=== PATIENT | female | born 1955 | race Caucasian/White ===

== ENCOUNTER 2023-12-19 01:39 | Emergency (ER) | payer OTHER ==
[~2023-12-19] VITALS: Ht 170.2 cm; Wt 91.0 kg
[2023-12-19 01:45] VITALS: O2SAT 98
[2023-12-19] MEDS ORDERED: ACETAMINOPHEN 325MG TABLET PO ONE (02:00)
[2023-12-19] MEDS ORDERED: ONDANSETRON 4MG ODT PO ONE (02:00)
[2023-12-19 02:12] LABS: BASOPHILS % 0.3 % (0.0-2.0); EOSINOPHILS % 0.6 % (0.0-5.0); HEMATOCRIT. 26.3 % (36.0-48.0); HEMOGLOBIN. 7.7 g/dL (12.0-16.0); LYMPHOCYTES % 9.2 % (20.0-50.0); MEAN CORPUSCULAR HEMOGLOBIN 16.7 pg (28.0-32.0); MEAN CORPUSCULAR HGB CONC 29.4 g/dL (31.0-37.0); MEAN CORPUSCULAR VOLUME 56.8 fL (81.0-99.0); MEAN PLATELET VOLUME 8.2 fl (7.4-10.4); MONOCYTES % 4.9 % (2.0-8.0); PLATELET 211 x1000/uL (130-400); RED BLOOD CELL COUNT 4.62 mill/uL (4.2-5.4); RED CELL DISTRIBUTION WIDTH 22.9 % (11.6-14.6); WHITE BLOOD COUNT 10.4 x1000/uL (4.5-11.0)
[2023-12-19 02:17] LABS: ADD RBC MORPHOLOGY YES; DIFFERENTIAL COMMENT 1
[2023-12-19 02:26] LABS: ALANINE AMINOTRANSFERASE 14 IU/L (10-49); ALBUMIN 4.3 g/dL (3.2-4.8); ASPARTATE AMINOTRANSFERASE 25 IU/L (<34); BILIRUBIN TOTAL 0.7 mg/dL (0.1-1.0); CALCIUM 8.9 mg/dL (8.7-10.4); CARBON DIOXIDE 26 mEq/L (21-32); CHLORIDE 101 mEq/L (98-107); CREATININE 0.8 mg/dL (0.6-1.0); GLUCOSE 170 mg/dL (70-105); POTASSIUM 3.6 mEq/L (3.5-5.1); PROTEIN TOTAL 7.8 g/dL (6.0-8.3); SODIUM 134 mEq/L (136-145); UREA NITROGEN BLOOD 15 mg/dL (9-23)
[2023-12-19 03:36] LABS: HYPOCHROMASIA 1+; MICROCYTOSIS 1+; PLATELET ESTIMATE NORMAL
[2023-12-19] MEDS: ONDANSETRON HCL 4MG/2ML INJ IV ONE (04:03)
[2023-12-19] MEDS: MORPHINE SULFATE 4 MG/ML CPJ (NOT FOR IM USE) IV ONE (04:03)
[2023-12-19] MEDS: ACETAMINOPHEN 325MG TABLET PO NR (04:04)
[2023-12-19] MEDS: MORPHINE SULFATE 10 MG/ML CPJ IM ONE (04:04)
[2023-12-19 07:34] VITALS: TEMP 98.5
[2023-12-19 07:40] VITALS: BP 154/68; PULSE 91; RESP 18
[2023-12-19 07:40] LABS: CLARITY URINE CLEAR (CLEAR); COLOR URINE YELLOW (YELLOW); GLUCOSE URINE NEGATIVE (NEGATIVE); KETONES URINE NEGATIVE (NEGATIVE); LEUKOCYTE ESTERASE URINE 3+ (NEGATIVE); NITRITE URINE NEGATIVE (NEGATIVE); OCCULT BLOOD URINE NEGATIVE (NEGATIVE); PROTEIN URINE NEGATIVE (NEGATIVE); SPECIFIC GRAVITY URINE 1.009 (1.005-1.030)
[2023-12-19] MEDS: ONDANSETRON HCL 4MG/2ML INJ IV STA (07:40)
[2023-12-19] MEDS: MORPHINE SULFATE 4 MG/ML CPJ (NOT FOR IM USE) IV STA (07:40)
[2023-12-19 08:18] LABS: SQUAMOUS EPITHELIAL CELL URINE 1+ /lpf (RARE/1+)
[2023-12-19 08:19] LABS: BACTERIA URINE TRACE; RBC URINE 0-2 /hpf (0-2)
== END 2023-12-19 08:27 | disposition short-term general hospital (02) ==
LOC: ER 01:39
DX: S72.002A Fracture of unspecified part of neck of left femur, initial encounter for closed fracture (principal); E11.9 Type 2 diabetes mellitus without complications; Z20.822 Contact with and (suspected) exposure to COVID-19; W18.39XA Other fall on same level, initial encounter; Y93.89 Activity, other specified; Y92.89 Other specified places as the place of occurrence of the external cause; Y99.8 Other external cause status
CPT/HCPCS: 99285; 96374; 71045; 96375; 87426; 80053; 81003; 85025; 36415; 73502; 73552; 93005; 96376; J2405; J2270

== ENCOUNTER 2024-08-16 12:35 | Emergency (ER) | payer OTHER ==
[~2024-08-16] VITALS: Ht 165.1 cm; Wt 78.0 kg
[2024-08-16] MEDS ORDERED: INSULIN (12:46)
[2024-08-16] MEDS ORDERED: ZOLOFT (12:46)
[2024-08-16] MEDS ORDERED: MORPHINE SULFATE 4 MG/ML INJ (FOR IV/IM USE) IV ONE (13:30)
[2024-08-16 13:37] VITALS: O2SAT 96
[2024-08-16 13:49] LABS: HEMATOCRIT. 25.9 % (36.0-48.0); HEMOGLOBIN. 7.7 g/dL (12.0-16.0); MEAN CORPUSCULAR HEMOGLOBIN 19.2 pg (28.0-32.0); MEAN CORPUSCULAR HGB CONC 29.9 g/dL (31.0-37.0); MEAN CORPUSCULAR VOLUME 64.2 fL (81.0-99.0); MEAN PLATELET VOLUME 8.2 fl (7.4-10.4); PLATELET 164 x1000/uL (130-400); RED BLOOD CELL COUNT 4.03 mill/uL (4.2-5.4); RED CELL DISTRIBUTION WIDTH 18.5 % (11.6-14.6); WHITE BLOOD COUNT 7.2 x1000/uL (4.5-11.0)
[2024-08-16 13:54] LABS: CHLORIDE 102 mEq/L (98-107); POTASSIUM 3.7 mEq/L (3.5-5.1); SODIUM 136 mEq/L (136-145)
[2024-08-16 13:55] LABS: CARBON DIOXIDE 27 mEq/L (21-32)
[2024-08-16 13:56] LABS: CALCIUM 9.7 mg/dL (8.7-10.4)
[2024-08-16 14:00] LABS: GLUCOSE 233 mg/dL (70-105)
[2024-08-16 14:01] LABS: UREA NITROGEN BLOOD 18 mg/dL (9-23)
[2024-08-16 14:02] LABS: ALANINE AMINOTRANSFERASE 20 IU/L (10-49); ALBUMIN 4.1 g/dL (3.2-4.8); ASPARTATE AMINOTRANSFERASE 33 IU/L (<34); CREATINE KINASE 96 IU/L (34-145)
[2024-08-16 14:03] LABS: PROTEIN TOTAL 7.7 g/dL (6.0-8.3)
[2024-08-16 14:06] LABS: DIFFERENTIAL COMMENT 1
[2024-08-16 14:51] LABS: CREATININE 1.3 mg/dL (0.6-1.0)
[2024-08-16] MEDS: MORPHINE SULFATE 4 MG/ML INJ (FOR IV/IM USE) IV NR (16:02)
[2024-08-16 16:05] LABS: ANISOCYTOSIS 2+; MICROCYTOSIS 4+; PLATELET ESTIMATE NORMAL
[2024-08-16 18:31] VITALS: TEMP 36.94740
[2024-08-16] MEDS: LABETALOL 5MG/ML 4ML INJ IV ONE (19:00)
[2024-08-16 19:27] VITALS: O2SAT 96
[2024-08-16 20:00] VITALS: BP 169/46; PULSE 85; RESP 20
[2024-08-16] MEDS: MORPHINE SULFATE 4 MG/ML INJ (FOR IV/IM USE) IV ONE (20:00)
== END 2024-08-16 20:37 | disposition short-term general hospital (02) ==
LOC: ER 13:19 → EDBEDREQ 17:30 → EDBEDREQTM 17:30 → ER 20:37
DX: S72.091A Other fracture of head and neck of right femur, initial encounter for closed fracture (principal); S32.009A Unspecified fracture of unspecified lumbar vertebra, initial encounter for closed fracture; E11.9 Type 2 diabetes mellitus without complications; Z96.642 Presence of left artificial hip joint; W18.39XA Other fall on same level, initial encounter; Y93.89 Activity, other specified; Y92.89 Other specified places as the place of occurrence of the external cause; Y99.8 Other external cause status
CPT/HCPCS: 99285; 70450; 96374; 96375; 80053; 82550; 82962; 85025; 36415; 73502; 72125; 72131; 72192; 96376; J3490; J2270